=== PATIENT | female | born 1930 | race Caucasian/White ===

== ENCOUNTER 2017-05-16 11:31 | Emergency (ER) | payer MEDICARE ==
[~2017-05-16 11:31] MED LIST: AMOX500C PO; ASCO-72 PO; CHOL20002 PO; FISH12002 PO; FLUT9.9S NS; GUAI600T47 PO; NAPR220T70 PO; SIMV20TA3 PO; TIMO5DRO5 OP; metoprolol
[2017-05-16] MEDS ORDERED: ONDA4TAB12 PO (12:45)
--- NOTE | 2017-05-16 12:45 | PHYS DOC ---
Past History Past Medical History: Sinusitis, UTI, Other Past Surgical History: Other Alcohol Use: Occasionally Drug Use: None Adult General Chief Complaint Chief Complaint: EYE PROBLEMS HPI HPI Patient is a 87-year-old female visiting family from out of town, brought by family members for the complaint of left eye pain or pressure. Patient stated last night she had some nausea but no vomiting. This morning she woke up with some pressure type pain in her left eye. She doesn't believe she scratched or hurt her eye. Her vision seems to be normal to her. She doesn't feel like she has a sinus infection. It doesn't really feel like a headache. She took her morning medications and she wanted to take some Advil so she ate part of arrival and then she thought she might be dehydrated so she drank 2 large, 12 ounce glasses of water. About 10 minutes later, she vomited the water. She has had no further vomiting and she believes her nausea feels better but she is still a little bit nauseated. Family was unsure whether to bring her to the ER or whether to take her to the eye doctor. They actually do have a standby appointment with the eye doctor for a checkup today. The patient is very concerned about her left eye. 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 She does believe her left eye vision looks about normal to her today. Chart review shows that the patient was here 2 years ago for essentially the same complaint. She ended up having CT scan which showed a calcified area and was transferred to [place] for an MRI of this area. Family states that she was discharged after IV fluids from that hospital stay. Patient uses Timolol eye drops only in the right eye. They state she does not have glaucoma but the eye doctor just wanted to be on the safe side. She has never had an elevated pressure in her left eye. Patient reportedly typically has low blood pressure and low heart rate. She does take propranolol for a tremor. Review of Systems Review of Systems Constitutional: Denies fever or chills [] Eyes: As in history of present illness HENT: Denies nasal congestion or sore throat [] Respiratory: Denies cough or shortness of breath [] Cardiovascular: Denies chest pain GI: As in history of present illness Current Medications Current Medications Current Medications Medications (Trade) Dose Ordered Sig/Luis Start Time Stop Time Status Last Admin Dose Admin Ibuprofen (Motrin) 400 mg 1X ONCE 05/16/17 13:00 05/16/17 13:01 05/16/17 12:43 400 MG Ondansetron HCl (Zofran Odt) 4 mg 1X ONCE 05/16/17 13:00 05/16/17 13:01 05/16/17 12:43 4 MG Allergies Allergies Allergies Coded Allergies Type Severity Reaction Last Updated Verified Sulfa (Sulfonamide Antibiotics) Allergy Intermediate "Hives" 05/18/15 No nitrofurantoin Allergy Intermediate "Hives" 05/18/15 Yes Physical Exam Physical Exam Constitutional: Well developed, well nourished, no acute distress, non-toxic appearance. Alert, ambulatory, chatty, in no acute distress, noted to be bradycardic by ED RN with triage vital signs. HENT: Normocephalic, atraumatic, bilateral external ears normal, oropharynx moist, no oral exudates, nose normal. No tenderness to tapping over frontal or maxillary sinuses. No skin color changes, no swelling, no abnormalities to inspection of the face. Eyes: Right eye has enlarged, nonreactive, asymmetric iris status post surgery. No conjunctival abnormalities. Left eye pupil is 3 mm and reactive. There is no photophobia. Conjunctiva normal, no discharge. Cornea appears clear. Exam with ophthalmoscope reveals normal-appearing funduscopic exam to the best of my ability. Neck: Normal range of motion, no stridor. [] Skin: Warm, dry, no erythema, no rash. [] Extremities: No tenderness, no cyanosis, no clubbing, ROM intact, no edema. [] Neurologic: Alert and oriented X 3, normal motor function, no focal deficits noted. [] EKG EKG [] Radiology/Procedures Radiology/Procedures [] Course & Med Decision Making Course & Med Decision Making Pertinent Labs and Imaging studies reviewed. (See chart for details) 87 y/o female who is here from out of town visiting family brought to the ED by family members. She has a pressure type pain in her left eye, without visual disturbance. She also has had some nausea since last night and vomited once after she drank 24 ounces of water this morning quickly. It's unclear whether these 2 symptoms are related. The patient and family did say that when she had this similar symptom once before it was diagnosed as possible migraine type symptoms. The patient does not have a history of migraine headaches although her mother and her daughter both have them. The patient is nontoxic and my limited funduscopic and eye exam is normal. I discussed with the patient and her family. I believe we have ruled out a serious medical cause of her symptoms. I would like for her to be seen by an numerical control machine tool operator or cable testers helper. The family has already made inquiries about this and is able to get her in to be seen at the eye doctor urgently today. I believe that would be a better choice than to have me attempt to use the Carlos- Pen to obtain intraocular pressures. I don't have any reason to believe that her pressure is elevated but I would like for her to have that checked by the precision agriculture specialist. The patient was given a dose of Zofran for nausea and offered a dose of ibuprofen but I believe she declined to take that prior to leaving. Family took her to the eye doctor for a more thorough eye evaluation. She does have a retina specialist at home and would be safe for follow-up if the precision agriculture specialist today is not finding anything of an urgent nature. [] Dragon Disclaimer Dragon Disclaimer This electronic medical record was generated, in whole or in part, using a voice recognition dictation system. Departure Departure: Impression: Primary Impression: Headache Additional Impressions: Left eye pain Nausea & vomiting Condition: STABLE Referrals: PCP,NO (PCP) Additional Instructions: As we discussed, you are going straight to the eye doctor to have your eye pressure checked and an eye exam. I have prescribed Zofran if needed for nausea. Ibuprofen if needed for pain. Scripts Ondansetron (ONDANSETRON ODT) 4 Mg Tab.rapdis 1 TAB PO PRN Q6-8HRS for NAUSEA, #10 TAB Prov: AJ PATE MD 05/16/17 Problem Qualifiers AJ PATE MD May 16, 2017 12:45
[2017-05-16 12:50] VITALS: BP 142/90
[2017-05-16] MEDS ORDERED: IBUPROFEN 400 MG TABLET. PO ONE (13:00)
[2017-05-16] MEDS ORDERED: ONDANSETRON ODT 4 MG TAB.RAPDIS PO ONE (13:00)
== END 2017-05-16 12:50 | disposition home or self-care (01) ==
LOC: ER 11:31
DX: H57.12 Ocular pain, left eye (principal); R11.2 Nausea with vomiting, unspecified; R51 Headache; Z87.440 Personal history of urinary (tract) infections; Z88.2 Allergy status to sulfonamides; Z88.8 Allergy status to other drugs, medicaments and biological substances
CPT/HCPCS: 99283; Q0162